=== PATIENT | male | born 1950 | race Caucasian/White ===

== ENCOUNTER 2024-11-08 18:05 | Inpatient (IN) | payer MEDICARE, OTHER ==
[~2024-11-08] VITALS: Ht 160 cm; Wt 69.4 kg
[2024-11-08] MEDS ORDERED: ACETAMINOPHEN ES 500 MG TABLET ONE (18:21)
[2024-11-08] MEDS: ACETAMINOPHEN ES 500 MG TABLET PO ONE (18:25)
[2024-11-08] MEDS: IV NS 0.9% 1,000 ML BAG IV ONE (18:25)
[2024-11-08 18:38] LABS: PLATELET COUNT (AUTO) 183 K/uL (150-450); RED BLOOD CELL COUNT(AUTO) 3.76 MIL/uL (4.5-6.0); RED CELL DISTRIBUTION WIDTH 16.4 % (11.5-15.0); WHITE BLOOD COUNT (AUTO) 24.3 K/uL (4.3-11.0)
[2024-11-08 18:49] LABS: CALCIUM, SERUM 8.5 mg/dL (8.5-10.1); CREATININE 1.3 mg/dL (0.6-1.3); SODIUM SERUM 139 mmol/L (136-145); UREA NITROGEN, BLOOD 17 mg/dL (7-18)
[2024-11-08 18:50] LABS: INR 1.02 (0.91-1.10)
[2024-11-08 18:56] LABS: LACTIC ACID 1.1 mmol/L (0.4-2.0)
[2024-11-08] MEDS: CEFTRIAXONE 1GM BAG (ER ONLY) 50 ML IV ONE (18:57)
[2024-11-08 19:03] LABS: ASPARTATE AMINOTRANSFERASE 16 U/L (15-37); TOTAL PROTEIN, SERUM 6.2 g/dL (6.4-8.2)
[2024-11-08] MEDS: AZITHROMYCIN 500 MG in IV D5W 250 ML IV ONE (19:30)
[2024-11-08 20:17] LABS: APPEARANCE,URINE CLEAR (CLEAR); BLOOD, URINE Small Ery/uL (NEGATIVE); LEUKOCYTE ESTERASE ,URINE Negative (NEGATIVE); UGLUCOSE >=1000 mg/dL (NEGATIVE)
[2024-11-08 20:20] LABS: ADD URINE CULTURE NO; NITRITE, URINE NEGATIVE (NEGATIVE); SQUAMOUS EPITHELIAL CELL,UR None Seen /HPF (None Seen)
[2024-11-08] MEDS ORDERED: MAGNESIUM HYDROXIDE 30 ML UDC PO PRN (21:30)
[2024-11-08] MEDS ORDERED: MAG HYDROX/AL HYDROX/SIMETH 30 ML UDC PO PRN (21:30)
[2024-11-08] MEDS ORDERED: Z GUARD REMEDY 4 OZ OINT TP PRN (21:30)
[2024-11-08] MEDS ORDERED: ONDANSETRON HCL/PF 4 MG/2 ML VIAL IVP PRN (21:30)
[2024-11-08] MEDS ORDERED: ACETAMINOPHEN 325 MG TABLET PO PRN (21:30)
[2024-11-08 21:45] VITALS: O2SAT 95
[2024-11-08 23:15] VITALS: BP 150/52; TEMP 97.9; O2SAT 98
[2024-11-08] MEDS: ENOXAPARIN SODIUM 40 MG/0.4 ML DISP.SYRIN SQ SCH (23:17)
[2024-11-09] VITALS: BP 152/97; TEMP 97.7; O2SAT 98
[2024-11-09] MEDS: IV NS 0.9% 1,000 ML IV PRN (00:53)
[2024-11-09] MEDS ORDERED: INSULIN REGULAR, HUMAN 100 UNIT/ML 3 ML VIAL SQ PRN (01:00)
[2024-11-09] MEDS ORDERED: DEXTROSE 50%-WATER 50 ML DISP.SYRIN IV PRN (01:00)
[2024-11-09 05:56] LABS: PLATELET COUNT (AUTO) 154 K/uL (150-450); RED BLOOD CELL COUNT(AUTO) 3.47 MIL/uL (4.5-6.0); RED CELL DISTRIBUTION WIDTH 17.1 % (11.5-15.0); WHITE BLOOD COUNT (AUTO) 25.4 K/uL (4.3-11.0)
[2024-11-09 06:03] LABS: CALCIUM, SERUM 8.2 mg/dL (8.5-10.1); CREATININE 1.5 mg/dL (0.6-1.3); PHOSPHORUS 3.1 mg/dL (2.5-4.9); SODIUM SERUM 144.0 mmol/L (136-145); UREA NITROGEN, BLOOD 16.0 mg/dL (7-18)
[2024-11-09] MEDS: BLOOD SUGAR DIAGNOSTIC 1 EACH STRIP IN SCH (06:29)
[2024-11-09] MEDS: PANTOPRAZOLE 40 MG TABLET.DR PO SCH (07:39)
[2024-11-09 08:00] VITALS: BP 165/72; TEMP 98.1; O2SAT 97
[2024-11-09 10:26] LABS: LYMPHOCYTES % (MANUAL) 9 % (16-48); MONOCYTES % (MANUAL) 4 % (0-11.0); NEUTROPHILS % (MANUAL) 87 (42-76); PLATELET ESTIMATE ADEQUATE
[2024-11-09] MEDS: MAGNESIUM OXIDE 400 MG TABLET PO ONE (10:26)
[2024-11-09] MEDS ORDERED: DOSING PER PHARMACY-VANCOMYCIN IV XX PRN (13:00)
[2024-11-09] MEDS ORDERED: DOSING PER PHARMACY-CEFEPIME IVPB XX PRN (13:00)
[2024-11-09 14:05] LABS: CREATININE, URINE 15.5 MG/DL (30.0-125.0); URINE SODIUM, RANDOM 109.0 mmol/l (40-220); URINE TOTAL PROTEIN 7.4 mg/dL (0-11.9)
[2024-11-09] MEDS: CEFEPIME 2 GM in IV D5W 100 ML IV SCH (14:19)
[2024-11-09] MEDS: VANCOMYCIN HCL 1.25 GM in IV D5W 250 ML IV ONE (15:02)
[2024-11-09 15:51] LABS: IRON, SERUM 31.0 ug/dl (50-175)
[2024-11-09 16:00] VITALS: BP 184/79; TEMP 98.6; O2SAT 98
[2024-11-09] MEDS ORDERED: CLONIDINE HCL 0.1 MG TABLET PO PRN (17:00)
[2024-11-09] MEDS ORDERED: TAMS-12 PO (17:19)
[2024-11-09] MEDS ORDERED: DAPA5TAB PO (17:19)
[2024-11-09] MEDS ORDERED: FINA5TAB11 PO (17:19)
[2024-11-09 18:00] VITALS: BP 156/70
[2024-11-09] MEDS: VANCOMYCIN 500 MG in IV D5W 100ml IV ONE (18:05)
[2024-11-09] MEDS ORDERED: AZITHROMYCIN 500 MG in IV D5W 250 ML IV SCH (19:00)
[2024-11-09] MEDS ORDERED: CEFTRIAXONE 1 G in IV D5W 50 ML IV SCH (19:00)
[2024-11-09 22:45] LABS: OCCULT BLOOD STOOL NEGATIVE (NEGATIVE)
[2024-11-09] MEDS: TRAZODONE 50 MG TABLET PO PRN (22:48)
[2024-11-10 08:10] LABS: IMMUNOGLOBULIN A, SERUM 172 mg/dL (61-437); IMMUNOGLOBULIN M, SERUM 28 mg/dL (15-143)
[2024-11-10 09:11] LABS: CARCINOEMBRYONIC ANTIGEN (CEA) 2.5 ng/mL (0.0-4.7)
[2024-11-10 11:07] LABS: FOLIC ACID 16.9 ng/mL (>3.0)
[2024-11-10] MEDS ORDERED: VANCOMYCIN 1 GM in IV D5W 250ml IV SCH (18:00)
[2024-11-10] MEDS ORDERED: AZITHROMYCIN 250 MG TABLET PO SCH (19:00)
== END 2024-11-10 01:24 | disposition left against medical advice (07) | DRG 871 ==
LOC: ER 18:21 → TELE 21:28 → MED 11-09 04:02
PROVIDERS: ADMIT Registered Nurse Psychiatric/Mental Health; ATTEND Nurse Practitioner Family
DX: A41.9 Sepsis, unspecified organism (principal); J15.9 Unspecified bacterial pneumonia; E44.1 Mild protein-calorie malnutrition; N17.9 Acute kidney failure, unspecified; E11.65 Type 2 diabetes mellitus with hyperglycemia; V43.52XA Car driver injured in collision with other type car in traffic accident, initial encounter; Y92.410 Unspecified street and highway as the place of occurrence of the external cause; E88.09 Other disorders of plasma-protein metabolism, not elsewhere classified; D64.9 Anemia, unspecified; Z85.46 Personal history of malignant neoplasm of prostate; E83.89 Other disorders of mineral metabolism; Z20.822 Contact with and (suspected) exposure to COVID-19; Z79.60 Long term (current) use of unspecified immunomodulators and immunosuppressants; Z68.27 Body mass index [BMI] 27.0-27.9, adult; N18.9 Chronic kidney disease, unspecified; I12.9 Hypertensive chronic kidney disease with stage 1 through stage 4 chronic kidney disease, or unspecified chronic kidney disease; Z90.79 Acquired absence of other genital organ(s); Z53.29 Procedure and treatment not carried out because of patient's decision for other reasons
CPT/HCPCS: 36415; 70450-TC; 71045-TC; 71250-TC; 76770-TC; 80048-TC; 80076-TC; 81001; 82272-TC; 82378; 82570-TC; 82607-TC; 82728-TC; 82784; 82962-TC; 83540-TC; 83605-TC; 83735-TC; 84100-TC; 84300-TC; 84443-TC; 85025-TC; 85027-TC; 85730-TC; 86334; 87040-TC; 87086-TC; A4223; G0378; J0456; J0692; J0696; J1650; J1815; J3373; J7030; J7060